=== PATIENT | female | born 1995 | race Caucasian/White ===

== ENCOUNTER 2025-03-12 08:25 | Emergency (ER) | payer OTHER, SELFPAY ==
[2025-03-12 08:33] VITALS: BP 110/78
--- NOTE | 2025-03-12 08:49 | EDRN ---
This RN assumed care of pt at this time.
[2025-03-12 09:02] VITALS: BP 111/70
[2025-03-12 09:05] VITALS: BMI 23.3
--- NOTE | 2025-03-12 09:07 | EDRN ---
MN. Dolly LAZARO in room w/ pt.
--- NOTE | 2025-03-12 09:13 | ED.GENMED ---
History of Present Illness
General
Chief Complaint: Fall
Source: patient
Exam Limitations: none
Time Seen by Provider: 03/12/25 09:04
History of Present Illness
History of Present Illness:
30yoF with no significant past medical history presenting via EMS for evaluation after a fall about 1 hour ago. Patient was carrying her daughter walking down the steps when she tripped and fell backwards. She struck her upper back against the
stairs and got the 'wind knocked out of her.' She reports some discomfort with breathing. No head strike, loss of consciousness, or headache. She denies any pain in the neck and states her pain is primarily in the bilateral posterior rib area.
Phy Exam
General Physical Exam
General Presentation: well appearing and no apparent distress
General age: appears stated age
General Skin: warm and dry
General Habitus: normal
General Mental: alert
ENT Exam
ENT Exam: normocephalic and other (No external signs of head trauma. No cervical spine tenderness with full ROM.)
Pulmonary Exam
Pulmonary Exam: lungs clear, no respiratory distress, no rales, no crackles, no rhonchi and no wheezing
Neurological Exam
Neurological Exam: alert
Bj Coma Scale
Eye Opening: Spontaneous
Verbal Response: Oriented
Motor Response: Obeys Commands
GCS Total Score: 15
Musculoskeletal Exam
Musculoskeletal Exam: other (+Mild tenderness to posterior ribcage bilaterally. No skin changes or crepitus. Bilateral breath sounds equal. No midline thoracic or lumbar spine tenderness. )
Skin Exam
Skin Exam: normal color and warm/dry
Psychiatric Exam
Psychiatric Exam: normal mood/affect
Course
Orders/Labs/Results
Orders:
Orders
03/12/25 09:12
Ribs, Thiago 4 View W/PA Chest [CR Ribs-thiago 4 Vw W/pa Chest] Urgent
Comment:
Reason For Exam: upper back pain after fall
Vital Signs
Initial and Last Documented VS:
Initial Vital Signs
Temp Pulse Resp BP Pulse Ox
98.0 F 69 16 110/78 98
03/12/25 08:33 03/12/25 08:33 03/12/25 08:33 03/12/25 08:33 03/12/25 08:33
Last Documented Vital Signs
Temp Pulse Resp BP Pulse Ox
98.0 F 61 16 111/70 100
03/12/25 08:33 03/12/25 09:02 03/12/25 09:02 03/12/25 09:02 03/12/25 09:15
MDM/Problems Addressed
Differential Diagnosis Includes:
30yoF here with thoracic/posterior rib pain after a fall on the steps. She is awake and alert with stable vitals. Mild tenderness on exam without skin changes or crepitus. Bilateral breath sounds equal. Differential diagnosis includes: soft tissue
injury, rib contusion, fracture, less likely but consider pneumothorax
Bilateral rib x-rays obtained. Imaging negative for fractures and lungs are clear. Patient stable for discharge. Supportive care discussed and advised f/u with PCP.
*Pulse Oximetry
SaO2: 100
Oxygen Mode of Delivery: Room air
Patient hypoxic: no
*Critical Care Note
Total Time (30-74mins, 75-104mins- exclusive of procedures): Not Applicable
ED Attending Note
-
Portions of this chart may have been created with voice recognition software.� Occasional wrong word or��sound alike� substitutions may have occurred due to the inherent limitations of voice recognition software.
Discharge Plan
Departure
Patient Disposition: Home (Routine Discharge)
Date of Disposition: 03/12/25
Time of Disposition: 10:45
Patient with high blood pressure during this ER visit?: No
Discharge Problem:
Rib pain, Fall (on) (from) other stairs and steps, initial encounter
Instructions: Rib injury in adults
Referrals:
[facility] [Provider Group]
UNKNOWN - PT NOT,INTERVIEWE [Family Provider]
Activity Restrictions/Additional Instructions:
Apply ice to affected area. Take Tylenol and ibuprofen as needed for pain.
Please follow-up with your family doctor. Return to the ER with any new or worsening symptoms.
Interventions
Interventions:
*Risk Screen - Suicide Last Done: 03/12/25 08:33
*General Assessment Last Done: 03/12/25 09:01
*Neglect/Abuse Screening Last Done: 03/12/25 08:33
*ED- Fall Risk Assessment Last Done: 03/12/25 09:01
*ED COVID-19 Vaccine History Last Done: 03/12/25 09:01
*ED Influenza Vaccine History Last Done: 03/12/25 09:01
*Nursing Disposition Last Done: 03/12/25 11:14
ED-Musculoskeletal Assessment Last Done: 03/12/25 09:02
ED- Neurological Assessment Last Done: 03/12/25 09:02
ED-Skin Assessment Last Done: 03/12/25 09:02
Discharge Date and Time
Discharge Date/Time: 03/12/25 11:15
Print Language: [id number]
== END 2025-03-12 11:15 | disposition home or self-care (01) ==
LOC: EMR 08:25
PROVIDERS: EMERGENCY PHYSICIAN Emergency Medicine
DX: R07.81 Pleurodynia (principal); W10.8XXA Fall (on) (from) other stairs and steps, initial encounter
CPT/HCPCS: 99283; 71111

== ENCOUNTER 2025-03-20 06:18 | Day surgery (SDC) | payer OTHER, SELFPAY | END 2025-03-20 10:53 | disposition home or self-care (01) | LOC: GI 06:18 | PROVIDERS: ATTENDING PHYSICIAN Internal Medicine Gastroenterology | DX: Z12.11 Encounter for screening for malignant neoplasm of colon (principal); K63.5 Polyp of colon; K64.8 Other hemorrhoids; K62.1 Rectal polyp; Z83.719 Family history of colon polyps, unspecified | CPT/HCPCS: 45385; 45380; 88305 ==